=== PATIENT | male | born 1990 | race Caucasian/White ===

== ENCOUNTER → 2019-01-08 | Outpatient (CLI) | payer OTHER ==
--- NOTE | 2019-01-08 08:15 | REP ---
Paranasal sinus CT without contrast: History: Polyp of the nasal cavity. No comparison imaging. Findings: There is a large mucous retention cyst filling the majority of the volume of the right maxillary sinus. There is a small subcentimeter mucous retention cyst in the floor of the left maxillary sinus along with some minimal mucosal thickening. There is partial opacification or mucosal thickening in the right ethmoid air cells. Left ethmoids are clear. There is moderate mucosal thickening affecting the right frontal sinus. Bony sinus margins are intact. The sphenoid sinus is clear. There is fluid opacifying multiple mastoid air cells on the right inferiorly. The more superior mastoid air cells are clear. The left mastoid sinus is under pneumatized but there is no evidence to suggest mastoiditis on the left. Internal auditory canals are normal and symmetric. Cochlear and vestibular apparatus appear intact. No intraorbital abnormality is seen. No intracranial abnormality is observed. The deep facial soft tissues are unremarkable. There is a nasal polyp projecting into the posterior nasopharynx on the right. This measures 13 mm x 17 mm. There is a second polypoid area adjacent to the posterior aspect of the inferior turbinate on the right which may be an extension of the same polyp or a second polyp. Bony nasal septum is in the midline. There is a cristela bullosa on the left which is aerated in the middle turbinate. The right middle turbinate is small. The naso ethmoid recesses are patent. Ostiomeatal complexes are clear bilaterally. Impression: Polysinusitis changes. Right nasal polyps. Electronically Signed by Oral Martin MD 01/08/2019 09:54 A
== END ==
LOC: M RAD 07:17
PROVIDERS: ATTEND Otolaryngology
DX: J33.9 Nasal polyp, unspecified (principal)

== ENCOUNTER → 2020-01-08 | Outpatient (CLI) | payer OTHER ==
[~2020-01-08] MED LIST: HYDR-4571; OMEG1CAP16 PO; ONETAB9 PO; PRED20TA PO; [UNRECOGNIZED DRUG - OTHER] PO
--- NOTE | 2020-01-08 16:16 | REPVR ---
PROCEDURE INFORMATION: Exam: CT Maxillofacial Without Contrast, Sinus Exam date and time: 01/08/2020 3:46 PM Age: 29 years old Clinical indication: Sinusitis; Type not specified; Additional info: Pansinusitits TECHNIQUE: Imaging protocol: CT Maxillofacial without contrast. Focus on the sinuses. Axial and coronal reformatted images were created and reviewed. Radiation optimization: All CT scans at this facility use at least one of these dose optimization techniques: automated exposure control; mA and/or kV adjustment per patient size (includes targeted exams where dose is matched to clinical indication); or iterative reconstruction. COMPARISON: CT Maxilofacial w/out contrast 01/08/2019 7:33 AM FINDINGS: Frontal sinuses: Normal. No air-fluid levels. Ethmoid air cells: Minimal ethmoid mucosal thickening. No air-fluid levels. Sphenoid sinuses: Minimal sphenoid sinus mucosal thickening. No air-fluid levels. Maxillary sinuses: Near complete polypoid opacification of the right maxillary sinus, slightly improved since the prior study. Small left maxillary sinus polyps versus mucous retention cysts, slightly increased in size since prior study. No air-fluid levels. Orbits: Unremarkable. Globes intact. Mastoid air cells: Partial opacification and sclerosis of the left mastoid air cells, similar to prior. Nasal cavity/Septum: Right posterior nasal septal polyp, similar to prior. No significant nasal septal deviation. Soft tissues: Unremarkable. Bones/joints: Unremarkable. IMPRESSION: 1. Mild chronic paranasal sinus disease, as above. 2. Additional findings, as above. Electronically signed by: David High On 01/08/2020 16:16:40 PM
== END ==
LOC: M RAD 15:34
PROVIDERS: ATTEND Otolaryngology
DX: J32.4 Chronic pansinusitis (principal)

== ENCOUNTER 2020-01-12 08:20 | Day surgery (SDC) | payer OTHER ==
[~2020-01-12] VITALS: Ht 170.2 cm; Wt 77.1 kg
[~2020-01-12 08:20] MED LIST changes: -HYDR-4571; -PRED20TA PO
[2020-01-12] MEDS ORDERED: LR 1,000 ML IV ONE (09:15)
[2020-01-12] MEDS ORDERED: METHYLENE BLUE 0.5% (5MG/ML) 10 ML AMP (PROVAYBLUE) As Ordered ONE ×2 (10:12→10:13)
[2020-01-12] MEDS ORDERED: EPINEPHrine 1MG/ML INJ 30ML MD-VIAL As Ordered ONE (10:12)
[2020-01-12] MEDS ORDERED: LIDOCAINE W/EPINEPHRINE 1% 20ML VIAL As Ordered ONE (10:13)
[2020-01-12] MEDS ORDERED: dexameTHASONE 4 MG/ML 1ML VIAL (J1100 PER 1MG) As Ordered ONE (10:55)
[2020-01-12] MEDS ORDERED: fentaNYL 100 MCG/2 ML INJECTION (J3010) As Ordered ONE ×3 (11:03→12:02)
[2020-01-12] MEDS ORDERED: ONDANSETRON 4MG/2ML VIAL As Ordered ONE (11:05)
[2020-01-12] MEDS ORDERED: ACETAMINOPHEN 1000MG 100ML IV BTL (OFIRMEV) (J0131 PER 10MG) As Ordered ONE (11:05)
[2020-01-12] MEDS ORDERED: METOCLOPRAMIDE INJ 10MG/2ML VIAL (J2765 PER 1) As Ordered ONE (11:05)
[2020-01-12] MEDS ORDERED: propofoL 200 MG/20 ML VIAL As Ordered ONE ×2 (11:08→11:49)
[2020-01-12] MEDS ORDERED: ROCURONIUM BROMIDE 50 MG/5 ML VIAL As Ordered ONE (11:49)
[2020-01-12] MEDS ORDERED: MIDAZOLAM INJ 2MG/2ML VIAL (J2250 PER 1MG) As Ordered ONE (11:49)
[2020-01-12] MEDS ORDERED: LIDOCAINE 2% 100MG/5ML SDV (FOR ANES.) As Ordered ONE (11:49)
[2020-01-12] MEDS ORDERED: ONDANSETRON 4MG/2ML VIAL IV PRN (12:15)
[2020-01-12] MEDS ORDERED: LR 1,000 ML IV SCH ×2 (12:15→12:30)
[2020-01-12] MEDS ORDERED: traMADol 50 MG TAB As Ordered ONE (12:18)
[2020-01-12] MEDS ORDERED: traMADol 50 MG TAB PO ONE (12:30)
[2020-01-12] MEDS ORDERED: NORCO, ANEXSIA 5/325MG TABLET (HYDROcodone/ACETAMINOPHEN) PO PRN (12:45)
[2020-01-12] MEDS: fentaNYL 100 MCG/2 ML INJECTION (J3010) IV PRN ×4 (12:52→13:07)
[2020-01-12 14:00] VITALS: BP 139/80
--- NOTE | 2020-01-28 15:20 | RO ---
DATE OF OPERATION: 01/12/2020 PREOPERATIVE DIAGNOSIS: Chronic sinusitis. POSTOPERATIVE DIAGNOSIS: Chronic sinusitis. PROCEDURE: Right intranasal antrostomy; right ethmoidectomy; right polypectomy; right antrostomy. SURGEON: Timmy Boyce MD FINDINGS: There was a large polyp in the right side of the nose. PROCEDURE: Under general anesthesia with the patient intubated, the patient was prepped and draped in the usual manner. I did use the navigation system during the procedure. The navigation system was calibrated and tested. I used pledgets of Adrenalin 1:100,000. I went first to the right side. There was a large polyp which I removed with a microdebrider. I then went between the middle turbinates and lateral nasal wall. I removed the ethmoid bullae, the uncinate process and then opened up the maxillary sinus. I opened up the ethmoid air cells anterior to posterior, inferior superior. Once this was done everything looked good. The patient tolerated the procedure well. Less than 25 mL estimated blood loss. I did not do anything to the left side. I then put in a Propel implant in the osteomeatal complex area. The patient was extubated and transferred to the Recovery Room in excellent condition. RADHA
--- NOTE | 2020-02-24 07:43 | RO ---
DATE OF OPERATION: 01/12/2020 PREOPERATIVE DIAGNOSIS: Chronic sinusitis. POSTOPERATIVE DIAGNOSIS: Chronic sinusitis. PROCEDURE: Right intranasal antrostomy; right ethmoidectomy; right polypectomy; right antrostomy. SURGEON: Timmy Boyce MD POCKET CLOSER: ANESTHESIA: General. FINDINGS: There was a large polyp in the right side of the nose. DESCRIPTION OF PROCEDURE: Under general anesthesia with the patient intubated, the patient was prepped and draped in the usual manner. I did use the navigation system during the procedure. The navigation system was calibrated and tested. I used pledgets of Adrenalin 1:100,000. I went first to the right side. There was a large polyp which I removed with a microdebrider. I then went between the middle turbinates and lateral nasal wall. I removed the ethmoid bullae, the uncinate process and then opened up the maxillary sinus. I opened up the ethmoid air cells anterior to posterior, inferior superior. Once this was done everything looked good. The patient tolerated the procedure well. Less than 25 mL estimated blood loss. I did not do anything to the left side. I then put in a Propel implant in the osteomeatal complex area. The patient was extubated and transferred to the Recovery Room in excellent condition. RADHA
== END 2020-01-12 14:40 | disposition home or self-care (01) ==
LOC: M SDC 08:20
PROVIDERS: ATTEND Otolaryngology
DX: J32.4 Chronic pansinusitis (principal); J33.9 Nasal polyp, unspecified; Z88.5 Allergy status to narcotic agent
CPT/HCPCS: 31254; 31267; 87486; 87581; 87633; 87798; 88305; J0131; J1100; J2250; J2405; J2765; J3010; Q9968

== ENCOUNTER 2020-01-25 06:38 | Emergency (ER) | payer OTHER ==
[~2020-01-25] VITALS: Ht 170.2 cm; Wt 81.4 kg
[2020-01-25] MEDS ORDERED: HYDR-4571 (06:53)
[2020-01-25] MEDS ORDERED: KETOROLAC 30 MG/ML 1ML VIAL IV ONE (07:15)
[2020-01-25] MEDS ORDERED: NS 1,000 ML IV ONE (07:15)
[2020-01-25 08:07] LABS: BASO # 0.1 10^3/uL (0.0-0.2); BASO % 1.2 % (0.0-1.0); EOS # 0.2 10^3/uL (0.0-0.5); EOS % 4.5 % (0.0-3.0); HEMATOCRIT 42.9 % (42.0-52.0); HEMOGLOBIN 14.7 g/dl (13.5-17.5); LYMPH # 1.8 10^3/uL (1.5-5.0); LYMPH % 34.2 % (24.0-44.0); MEAN CORPUSCULAR HEMOGLOBIN 33.3 pg (27.0-33.0); MEAN CORPUSCULAR HGB CONC 34.3 g/dl (32.0-36.5); MEAN CORPUSCULAR VOLUME 97.1 fl (80.0-96.0); MONO # 0.5 10^3/uL (0.0-0.8); MONO % 10.3 % (0.0-5.0); NEUTROPHILS # 2.6 10^3/uL (1.5-8.5); NEUTROPHILS % 49.6 % (36.0-66.0); PLATELET COUNT, AUTOMATED 188 10^3/uL (150-450); RED BLOOD COUNT 4.42 10^6/uL (4.30-6.10); WHITE BLOOD COUNT 5.2 10^3/uL (4.0-10.0)
[2020-01-25] MEDS ORDERED: ISOVUE-370 76% 100ML VIAL As Ordered ONE (08:08)
[2020-01-25 08:19] LABS: INR 0.96
[2020-01-25 08:20] LABS: PARTIAL THROMBOPLASTIN TIME 27.8 SECONDS (24.2-38.5)
[2020-01-25 08:37] LABS: ERYTHROCYTE SEDIMENTATION RATE 10 mm/hr (0-15)
--- NOTE | 2020-01-25 08:45 | REPVR ---
PROCEDURE INFORMATION: Exam: CT Head Without Contrast Exam date and time: 01/25/2020 7:12 AM Age: 29 years old Clinical indication: Pain; Headache; Additional info: Headache, R eye swelling TECHNIQUE: Imaging protocol: Computed tomography of the head without contrast. Radiation optimization: All CT scans at this facility use at least one of these dose optimization techniques: automated exposure control; mA and/or kV adjustment per patient size (includes targeted exams where dose is matched to clinical indication); or iterative reconstruction. COMPARISON: CT BRAIN LAB SINUSES 01/08/2020 3:53 PM FINDINGS: Brain: Normal. No hemorrhage. Unremarkable white matter. No mass effect. Ventricles: No ventriculomegaly. Bones/joints: Unremarkable. No acute fracture. Paranasal sinuses: Right maxillary and ethmoid sinusitis. Mastoid air cells: Visualized mastoid air cells are well aerated. Soft tissues: Unremarkable. IMPRESSION: No acute intracranial pathology. Right maxillary and ethmoid sinusitis. Electronically signed by: Jluis Snell On 01/25/2020 08:45:28 AM
--- NOTE | 2020-01-25 08:49 | REPVR ---
PROCEDURE INFORMATION: Exam: CT Maxillofacial With Contrast Exam date and time: 01/25/2020 7:12 AM Age: 29 years old Clinical indication: Mass, lump, or swelling; Other: R eye; Prior surgery; Surgery date: <1 month; Surgery type: Sinus; Additional info: R max surgery 2wks ago, R eye swelling and pain today TECHNIQUE: Imaging protocol: Computed tomography images of the face with intravenous contrast. Radiation optimization: All CT scans at this facility use at least one of these dose optimization techniques: automated exposure control; mA and/or kV adjustment per patient size (includes targeted exams where dose is matched to clinical indication); or iterative reconstruction. Contrast material: ISOVUE 370; Contrast volume: 75 ml; Contrast route: INTRAVENOUS (IV); COMPARISON: CT BRAIN LAB SINUSES 01/08/2020 3:53 PM FINDINGS: Orbits: Orbits are normal. Globes are unremarkable. Bones/joints: No acute fracture. Paranasal sinuses: Right maxillary and ethmoid sinusitis. Small retention cyst in the left maxillary sinus. Soft tissues: Unremarkable. IMPRESSION: Paranasal sinus disease. Electronically signed by: Jluis Snell On 01/25/2020 08:49:11 AM
[2020-01-25] MEDS ORDERED: PRED20TA PO (08:57)
[2020-01-25] MEDS ORDERED: predniSONE 20 MG TAB PO ONE (09:00)
[2020-01-25 09:15] VITALS: BP 132/81
== END 2020-01-25 09:16 | disposition home or self-care (01) ==
LOC: M ED 06:38
DX: J01.00 Acute maxillary sinusitis, unspecified (principal); F17.200 Nicotine dependence, unspecified, uncomplicated; Z88.6 Allergy status to analgesic agent; Z79.891 Long term (current) use of opiate analgesic
CPT/HCPCS: 70450; 70487; 80047; 85025; 85610; 85652; 85730; 86140; 87040; 96361; 96374; 99284; J1885; Q9967

== ENCOUNTER 2020-04-01 12:45 | Emergency (ER) | payer OTHER ==
[~2020-04-01] VITALS: Ht 170.2 cm; Wt 83.2 kg
[~2020-04-01 12:45] MED LIST changes: +HYDR-4571; +PRED20TA PO
[2020-04-01] MEDS ORDERED: [UNRECOGNIZED DRUG - OTHER] PO (12:54)
[2020-04-01] MEDS ORDERED: GI COCKTAIL 50ML BTL(HYOSCYAMINE/MAALOX/LIDOCAINE VISCOUS)(1:3:1) PO ONE (14:45)
[2020-04-01] MEDS ORDERED: PANTOPRAZOLE 40MG TAB (PROTONIX) PO ONE (14:45)
[2020-04-01] MEDS ORDERED: SUCRALFATE 1 GM TAB PO ONE (14:45)
[2020-04-01 15:14] LABS: BASO # 0.1 10^3/uL (0.0-0.2); BASO % 1.2 % (0.0-1.0); EOS # 0.3 10^3/uL (0.0-0.5); EOS % 4.1 % (0.0-3.0); HEMATOCRIT 40.3 % (42.0-52.0); HEMOGLOBIN 13.6 g/dl (13.5-17.5); LYMPH # 2.8 10^3/uL (1.5-5.0); LYMPH % 45.8 % (24.0-44.0); MEAN CORPUSCULAR HEMOGLOBIN 32.7 pg (27.0-33.0); MEAN CORPUSCULAR HGB CONC 33.7 g/dl (32.0-36.5); MEAN CORPUSCULAR VOLUME 96.9 fl (80.0-96.0); MONO # 0.7 10^3/uL (0.0-0.8); MONO % 10.8 % (0.0-5.0); NEUTROPHILS # 2.3 10^3/uL (1.5-8.5); NEUTROPHILS % 37.9 % (36.0-66.0); PLATELET COUNT, AUTOMATED 189 10^3/uL (150-450); RED BLOOD COUNT 4.16 10^6/uL (4.30-6.10)
--- NOTE | 2020-04-01 15:23 | REP ---
INDICATION: epigastric pain COMPARISON: None. TECHNIQUE: Supine views of the abdomen and pelvis. FINDINGS: Bowel gas pattern is nonspecific and without obstruction or perforation. No organomegaly. No abnormal calcifications. Skeletal structures intact. IMPRESSION: Normal abdominal radiograph. <Electronically signed by Silverio Hernandez > 04/01/20 [id number]
[2020-04-01 15:50] LABS: ALBUMIN 3.7 GM/DL (3.2-5.2); ALT/SGPT 44 U/L (12-78); BILIRUBIN,DIRECT < 0.1 MG/DL (0.0-0.2); BILIRUBIN,TOTAL 0.5 MG/DL (0.2-1.0); BLOOD UREA NITROGEN 14 MG/DL (7-18); CALCIUM LEVEL 9.1 MG/DL (8.5-10.1); CARBON DIOXIDE LEVEL 30 MEQ/L (21-32); CHLORIDE LEVEL 105 MEQ/L (98-107); CREATININE FOR GFR 0.98 MG/DL (0.70-1.30); GLOMERULAR FILTRATION RATE > 60.0 (>60); GLUCOSE, FASTING 91 MG/DL (70-100); LIPASE 93 U/L (73-393); POTASSIUM SERUM 4.1 MEQ/L (3.5-5.1); SODIUM LEVEL 139 MEQ/L (136-145); TOTAL PROTEIN 7.2 GM/DL (6.4-8.2)
[2020-04-01] MEDS ORDERED: PROT1TAB2 PO (16:40)
[2020-04-01] MEDS ORDERED: SUCR1SS PO (16:40)
[2020-04-01 17:01] VITALS: BP 124/66
== END 2020-04-01 17:09 | disposition home or self-care (01) ==
LOC: M ED 12:45
DX: K29.70 Gastritis, unspecified, without bleeding (principal); K21.9 Gastro-esophageal reflux disease without esophagitis; Z88.5 Allergy status to narcotic agent; Z88.6 Allergy status to analgesic agent

== ENCOUNTER 2021-01-10 12:20 | Emergency (ER) | payer OTHER ==
[~2021-01-10] VITALS: Ht 170.2 cm; Wt 81.7 kg
--- NOTE | 2021-01-10 18:13 | REPVR ---
PROCEDURE INFORMATION: Exam: CT Abdomen And Pelvis Without Contrast Exam date and time: 01/10/2021 5:31 PM Age: 30 years old Clinical indication: Abdominal pain; Flank; Left; Additional info: Abdominal pain/flank left TECHNIQUE: Imaging protocol: Computed tomography of the abdomen and pelvis without contrast. Radiation optimization: All CT scans at this facility use at least one of these dose optimization techniques: automated exposure control; mA and/or kV adjustment per patient size (includes targeted exams where dose is matched to clinical indication); or iterative reconstruction. COMPARISON: CR Abdomen,Flat Plate KUB 04/01/2020 2:46 PM FINDINGS: Liver: Normal. No mass. Gallbladder and bile ducts: Normal. No calcified stones. No ductal dilation. Pancreas: Normal. No ductal dilation. Spleen: Normal. No splenomegaly. Adrenal glands: Normal. No mass. Kidneys and ureters: Normal. No hydronephrosis. Stomach and bowel: Unremarkable. No obstruction. No mucosal thickening. Appendix: No evidence of appendicitis. Intraperitoneal space: Unremarkable. No free air. No significant fluid collection. Vasculature: Unremarkable. No abdominal aortic aneurysm. Lymph nodes: Unremarkable. No enlarged lymph nodes. Urinary bladder: Unremarkable as visualized. Reproductive: Unremarkable as visualized. Bones/joints: Unremarkable. No acute fracture. Soft tissues: Unremarkable. IMPRESSION: No acute findings. Electronically signed by: Yogesh Muñiz On 01/10/2021 18:13:40 PM
[2021-01-10 18:30] LABS: BASO # 0.1 10^3/uL (0.0-0.2); BASO % 1.5 % (0.0-1.0); EOS # 0.5 10^3/uL (0.0-0.5); EOS % 7.4 % (0.0-3.0); HEMATOCRIT 43.3 % (42.0-52.0); LYMPH # 2.8 10^3/uL (1.5-5.0); LYMPH % 39.1 % (24.0-44.0); MEAN CORPUSCULAR HEMOGLOBIN 33.4 pg (27.0-33.0); MEAN CORPUSCULAR HGB CONC 34.6 g/dl (32.0-36.5); MEAN CORPUSCULAR VOLUME 96.4 fl (80.0-96.0); MONO # 0.7 10^3/uL (0.0-0.8); MONO % 8.9 % (2.0-8.0); NEUTROPHILS # 3.1 10^3/uL (1.5-8.5); PLATELET COUNT, AUTOMATED 202 10^3/uL (150-450); RED BLOOD COUNT 4.49 10^6/uL (4.30-6.10); WHITE BLOOD COUNT 7.3 10^3/uL (4.0-10.0)
[2021-01-10 18:44] LABS: BILIRUBIN,DIRECT 0.1 MG/DL (0.0-0.2); BILIRUBIN,TOTAL 0.8 MG/DL (0.2-1.0); TOTAL PROTEIN 7.7 GM/DL (6.4-8.2)
[2021-01-10 20:51] VITALS: BP 120/70
== END 2021-01-10 21:19 | disposition home or self-care (01) ==
LOC: M ED 12:20
DX: R19.7 Diarrhea, unspecified (principal); R10.9 Unspecified abdominal pain; R11.0 Nausea; R53.83 Other fatigue; F17.200 Nicotine dependence, unspecified, uncomplicated; Z88.5 Allergy status to narcotic agent; Z88.6 Allergy status to analgesic agent; Z79.899 Other long term (current) drug therapy

== ENCOUNTER → 2021-01-10 | Outpatient (REF) | payer OTHER ==
[~2021-01-10] MED LIST changes: +PROT1TAB2 PO; +SUCR1SS PO; +[UNRECOGNIZED DRUG - OTHER] PO
== END ==
LOC: M LAB REF 11:34
PROVIDERS: ATTEND Physician Assistant
DX: R19.7 Diarrhea, unspecified (principal)